=== PATIENT | female | born 1980 | race Two or more races ===

== ENCOUNTER 2021-05-22 16:02 | Emergency (ER) | payer SELFPAY ==
[~2021-05-22] VITALS: Ht 167.6 cm; Wt 94.5 kg
[2021-05-22] MEDS ORDERED: HYDROcodone/APAP 5/325MG 1 TAB TABLET PO ONE (16:45)
[2021-05-22] MEDS ORDERED: NEOMY/BACITR/POLYMYXIN OINT PACKET. TP ONE (16:45)
--- NOTE | 2021-05-22 17:08 | PHYS DOC ---
Past Medical History Past Medical History: No Pertinent History Past Surgical History: Cholecystectomy Smoking Status: Never Smoker Alcohol Use: Occasionally Additional Information: WEEKENDS Drug Use: None General Adult EDM: Chief Complaint: FOOT INJURY PAIN HPI: HPI: 40-year-old female presents with report of left second and third toe pain and swelling after [facility] it just prior to arrival. Patient reports she was getting something off of the shelf when it ended up falling directly onto her foot. Patient was wearing Vans (canvas shoes). Reports bruising and swelling. Patient does report a small abrasion just below the nail. Denies any throbbing. Patient denies taking any medication prior to arrival. Patient reports she is unable to bear weight secondary to pain. Denies other injury. Review of Systems: Review of Systems: Constitutional: Denies fever or chills Musculoskeletal: Reports left second and third toe pain and swelling Integument: Reports second toe abrasion and bruising Neurologic: Reports numbness in second toe Complete systems were reviewed and found to be within normal limits, except as documented in this note. Heart Score: C/O Chest Pain: N/A Current Medications: Current Medications Medications (Trade) Dose Ordered Sig/Laila Start Time Stop Time Status Last Admin Dose Admin Acetaminophen/ Hydrocodone Bitart (Lortab 5/325) 1 tab 1X ONCE 05/22/21 16:45 05/22/21 16:46 DC 05/22/21 16:53 1 TAB Neomycin/ Polymyxin/ Bacitracin (Triple Antibiotic Ointment) 1 pkt 1X ONCE 05/22/21 16:45 05/22/21 16:46 DC 05/22/21 16:53 1 PKT Allergies: Allergies: Allergies Coded Allergies Type Severity Reaction Last Updated Verified No Known Drug Allergies 05/22/21 No Physical Exam: PE: Constitutional: Well developed, well nourished, no acute distress, non-toxic appearance HENT: Normocephalic, atraumatic Eyes: Conjunctiva normal, no discharge Neck: Normal range of motion, supple Lungs & Thorax: No respiratory distress, equal chest rise and fall Cardiovascular: Left PT and DP +2, cap refill less than 2 seconds to all toes on left Skin: Warm, dry, no erythema, pinpoint abrasion to dorsal aspect of left second toe just below nail bed, ecchymosis to middle phalanx of left second toe Extremities: Left second and third toe tenderness on palpation with surrounding edema primarily to second toe, ROM of left second and third toe limited secondary to pain Neurologic: Alert and oriented X 3, no focal deficits noted Psychologic: Affect normal, judgment normal Current Patient Data: Labs: Laboratory Tests Test 05/22/21 16:21 POC Urine HCG, Qualitative Hcg negative (Negative) Vital Signs: Vital Signs Date Time Temp Pulse Resp B/P (MAP) Pulse Ox O2 Delivery O2 Flow Rate FiO2 05/22/21 16:53 22 100 Room Air 05/22/21 16:08 98.8 95 142/69 (93) 98.8 EKG: EKG: [] Radiology/Procedures: Radiology/Procedures: PROCEDURE: FOOT LEFT 3V Exam: Left foot 3 views INDICATION: Pain to second and third toes status post blunt trauma TECHNIQUE: Frontal, lateral oblique views of the left foot Comparisons: None FINDINGS: There is a transverse fracture through the middle phalanx of the second digit. Mild surrounding soft tissue swelling. Fracture site is mildly angulated. Joint spaces are well-maintained. IMPRESSION: Transverse fractures of the middle phalanx of the second digit, mildly angulated. Electronically signed by: Gaby Plascencia MD (05/22/2021 5:24 PM) [facility] Course & Med Decision Making: Course & Med Decision Making Pertinent Imaging studies reviewed. (See chart for details) Patient presents with HPI and physical exam concerning for possible fracture to left second and third toes. Pain addressed. Ice applied. Wound cleaned and dressed. X-ray obtained with findings consistent for left second middle phalanx fracture. Postop shoe applied. Crutches provided with education. Patient stable for discharge with outpatient follow-up with PCP/podiatry. Podiatry referral provided. Discussed findings and plan with patient and family, who acknowledge understanding and agreement. Erinn Disclaimer: Erinn Disclaimer: This electronic medical record was generated, in whole or in part, using a voice recognition dictation system. Splinting Splinting : Location: Left foot Pre-Made Type: Postop shoe Pre-Proc Neuro Vasc Exam: normal Post-Proc Neuro Vasc Exam: normal, unchanged from pre-exam Departure Departure Impression: Primary Impression: Closed fracture of middle phalanx of toe Additional Impression: Toe abrasion Qualified Codes: S90.415A - Abrasion, left lesser toe(s), initial encounter Disposition: HOME / SELF CARE / HOMELESS Condition: STABLE Referrals: NO PCP (PCP) MYKE SHEPPARD DPM Patient Instructions: Abrasion, [id number], Cast Shoe, Crutch Use, [id number], RICE - Routine Care for Injuries, [id number], Toe Fracture, [id number] Additional Instructions: ICE area of discomfort 20 min on then leave off next 20 mins. Repeat several times daily as needed for next few days. Take [id number] ibuprofen as needed for pain or discomfort. May also use previously prescribed pain medication ([place]) as needed for pain FLORI INMAN DO May 22, 2021 17:08
[2021-05-22 17:20] VITALS: BP 110/59
--- NOTE | 2021-05-22 17:27 | RAD ---
Exam: Left foot 3 views INDICATION: Pain to second and third toes status post blunt trauma TECHNIQUE: Frontal, lateral oblique views of the left foot Comparisons: None FINDINGS: There is a transverse fracture through the middle phalanx of the second digit. Mild surrounding soft tissue swelling. Fracture site is mildly angulated. Joint spaces are well-maintained. IMPRESSION: Transverse fractures of the middle phalanx of the second digit, mildly angulated. Electronically signed by: Gaby Plascencia MD (05/22/2021 5:24 PM) [facility]
== END 2021-05-22 17:40 | disposition home or self-care (01) ==
LOC: ER 16:02
DX: S92.522A Displaced fracture of middle phalanx of left lesser toe(s), initial encounter for closed fracture (principal); W20.8XXA Other cause of strike by thrown, projected or falling object, initial encounter; Y93.89 Activity, other specified; Y92.89 Other specified places as the place of occurrence of the external cause; Y99.8 Other external cause status
CPT/HCPCS: 73630; 81025; 99283